=== PATIENT | male | born 1950 | race Caucasian/White ===

== ENCOUNTER 2025-05-12 09:02 | Outpatient (CLI) | payer MEDICARE | END 2025-05-12 09:03 | disposition home or self-care (01) | LOC: SCSMRI 09:02 | PROVIDERS: ATTEND Orthopaedic Surgery | DX: M48.062 Spinal stenosis, lumbar region with neurogenic claudication (principal); M47.816 Spondylosis without myelopathy or radiculopathy, lumbar region; M51.379 Other intervertebral disc degeneration, lumbosacral region without mention of lumbar back pain or lower extremity pain; M51.27 Other intervertebral disc displacement, lumbosacral region | CPT/HCPCS: 72148 ==